=== PATIENT | male | born 1980 ===

== ENCOUNTER 2024-09-26 13:01 | Outpatient (AMB) | payer OTHER, SELFPAY ==
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
== END 2024-09-26 13:39 | disposition home or self-care (01) ==
PROVIDERS: PCP Internal Medicine; Visit Provider Nurse Practitioner Family
DX: R68.82 Decreased libido (principal); R53.83 Other fatigue; Z13.9 Encounter for screening, unspecified
CPT/HCPCS: 99203

== ENCOUNTER → 2024-09-26 13:01 | Outpatient (BNVA) | payer OTHER, SELFPAY | PROVIDERS: PCP Internal Medicine; Visit Provider Nurse Practitioner Family | DX: R68.82 Decreased libido (principal); R53.83 Other fatigue | CPT/HCPCS: 81003 ==

== ENCOUNTER 2024-11-10 10:02 | Outpatient (REF) | payer OTHER, SELFPAY ==
[2024-11-10 13:41] LABS: Prostate Specific Antigen 1.24 ng/mL (<0.05-4.0)
[2024-11-11 20:13] LABS: Sex Hormone Binding Globulin 19 nmol/L (10-50)
[2024-11-11 20:24] LABS: Follicle Stimulating Hormone 3.6 mIU/mL (1.4-12.8); Lutenizing Hormone 3.4 mIU/mL (1.5-9.3)
[2024-11-15 02:58] LABS: Estradiol Ultra Sensitive 15 pg/mL (< OR = 29)
[2024-11-17 20:28] LABS: Testosterone, Free 55.8 pg/mL (35.0-155.0); Testosterone, Total 272 ng/dL (250-1100)
== END 2024-11-10 10:03 | disposition home or self-care (01) ==
LOC: HO.HMGCLDS 10:02
PROVIDERS: Visit Provider Nurse Practitioner Family
DX: E29.1 Testicular hypofunction (principal); R68.82 Decreased libido; R53.83 Other fatigue; Z12.5 Encounter for screening for malignant neoplasm of prostate
CPT/HCPCS: 36415; 82670; 83001; 83002; 84146; 84153; 84270; 84402; 84403

== ENCOUNTER 2024-11-12 09:49 | Outpatient (REF) | payer OTHER, SELFPAY ==
[2024-11-14 01:39] LABS: Follicle Stimulating Hormone 4.3 mIU/mL (1.4-12.8); Lutenizing Hormone 4.4 mIU/mL (1.5-9.3); Prolactin 6.9 ng/mL (2.0-18.0); Sex Hormone Binding Globulin 17 nmol/L (10-50)
[2024-11-18 16:53] LABS: Testosterone, Free 54.9 pg/mL (35.0-155.0); Testosterone, Total 280 ng/dL (250-1100)
[2024-11-19 01:54] LABS: Estradiol Ultra Sensitive 16 pg/mL (< OR = 29)
== END 2024-11-12 09:50 | disposition home or self-care (01) ==
LOC: HO.HMGCLDS 09:49
PROVIDERS: Visit Provider Nurse Practitioner Family
DX: Z13.89 Encounter for screening for other disorder (principal)
CPT/HCPCS: 36415; 82670; 83001; 83002; 84146; 84270; 84402; 84403

== ENCOUNTER 2024-11-22 07:41 | Outpatient (AMB) | payer OTHER, SELFPAY ==
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
== END 2024-11-22 08:46 | disposition home or self-care (01) ==
LOC: HO.HUSH 07:41
PROVIDERS: PCP Internal Medicine; Visit Provider Nurse Practitioner Family
DX: R53.83 Other fatigue (principal); R68.82 Decreased libido
CPT/HCPCS: 98013